=== PATIENT | male | born 1985 | race American Indian/Alaskan Native ===

== ENCOUNTER 2017-11-14 03:50 | Emergency (ER) | payer MEDICAID, OTHER ==
[2017-11-14 03:51] VITALS: BMI 26.4
[2017-11-14 04:07] VITALS: BP 133/87; PULSE 84; RESP 16; TEMP 97.8; O2SAT 97
[2017-11-14] MEDS ORDERED: Oxycodone/Acetaminophen 5/325 mg Tab PO ONE (04:13)
--- NOTE | 2017-11-14 04:16 | ED PDOC ---
Upper Extremity Pain/Injury Time Seen by Provider: 11/14/17 04:02 Chief Complaint (Nursing): Finger,Hand,&Wrist Chief Complaint (Provider): right hand pain History Per: Patient History/Exam Limitations: no limitations Onset/Duration Of Symptoms: Mins (30) Current Symptoms Are (Timing): Still Present Hands/Wrist (Pic): 1 - Tenderness, Swelling, Pain Worse W/Movement Additional Complaint(s): 32 y/o male presents with pain and swelling to right hand x 30 minutes. Patient states he punched a wall prior to arrival. Denies numbness/weakness right upper extremity, limitation of movement. Past Medical History Reviewed: Historical Data, Nursing Documentation, Vital Signs Vital Signs: Last Vital Signs Temp 97.8 F 11/14/17 04:04 Pulse 84 11/14/17 04:04 Resp 16 11/14/17 04:04 BP 133/87 11/14/17 04:04 Pulse Ox 97 11/14/17 04:04 - Medical History PMH: No Chronic Diseases - Family History Family History: States: Unknown Family Hx - Home Medications Home Medications: Ambulatory Orders Medication Instructions Recorded Fluticasone Nasal [Flonase] 1 actuation NS BID #1 bottle 01/28/14 Promethazine DM [Phenergan DM Oral 5 ml PO Q6 PRN #100 ml 01/28/14 Syrup] Amoxicillin/Clavulanate Pota 1 tab PO BID #14 tab 02/06/14 [Augmentin 875 mg-125 mg] Ibuprofen [Motrin] 600 mg PO Q6 PRN #20 tab 02/06/14 Ibuprofen [Motrin] 600 mg PO Q6 PRN #10 tab 05/24/14 Oxycodone HCl/Acetaminophen 1 tab PO Q4 #5 tab 05/24/14 [Percocet 325 mg-5 mg] Naproxen [Naprosyn] 500 mg PO BID PRN #15 tablet 10/11/15 Oxycodone HCl/Acetaminophen 1 tab PO Q6 PRN #6 tab 10/11/15 [Percocet 325 mg-5 mg] Ibuprofen [Motrin Tab] 1 tab PO Q6 PRN #20 tab 11/14/17 traMADol [Ultram] 50 mg PO Q8 PRN #12 tab 11/14/17 - Allergies Allergies/Adverse Reactions: Allergies Allergy/AdvReac Type Severity Reaction Status Date / Time No Known Allergies Allergy Verified 10/28/15 09:01 Review of Systems ROS Statement: Except As Marked, All Systems Reviewed And Found Negative Musculoskeletal: Positive for: Hand Pain (right) Physical Exam - Reviewed Nursing Documentation Reviewed: Yes Vital Signs Reviewed: Yes - Physical Exam Appears: Positive for: Well, Non-toxic, Uncomfortable (agitated) Head Exam: Positive for: ATRAUMATIC, NORMAL INSPECTION, NORMOCEPHALIC Pulses-Radial (L): 2+ Pulses-Radial (R): 2+ Extremity: Positive for: Capillary Refill (<2 sec b/l UE), Deformity, Swelling ( right hand swelling) Neurologic/Psych: Positive for: Alert, Oriented. Negative for: Motor/Sensory Deficits - ECG O2 Sat by Pulse Oximetry: 97 - Other Rad xray right hand X-Ray: Viewed By Me (reviewed with ED attending) X-Ray Interpretation: + avulsion fx base of 5th metacarpal - Progress ED Course And Treament: xray, percocet Patient uncooperative and extremely agitated in ED; out of exam room cursing at staff, demanding faster treatment. Security called, patient now yelling in security's face PD called Patient educated on xray findings, agreeable to splint application Dr. Lee at bedside to apply ulnar gutter splint. Patient refusing to allow proper flexion of 4th and 5th digits for splint. Sling applied Distal NV intact after splint application Patient was advised to follow up with hand specialist. Ice, elevate Rx tramadol, ibuprofen provided Return precautions given Disposition - Clinical Impression Clinical Impression: Right hand fracture - Patient ED Disposition Is Patient to be Admitted: No Counseled Patient/Family Regarding: Studies Performed, Diagnosis, Need For Followup, Rx Given - Disposition Referrals: [facility] [Outside] Tony Tinajero MD [Medical Doctor] - Disposition: Routine/Home Disposition Time: 05:09 Condition: STABLE Prescriptions: Ibuprofen [Motrin Tab] 1 tab PO Q6 PRN #20 tab PRN Reason: Pain, Moderate (4-7) traMADol [Ultram] 50 mg PO Q8 PRN #12 tab PRN Reason: Pain, Moderate (4-7) Instructions: Hand Fracture
[2017-11-14] MEDS ORDERED: Oxycodone/Acetaminophen 5/325 mg Tab ONE (04:33)
--- NOTE | 2017-11-14 14:52 | RAD ---
PROCEDURE: Right Hand Radiographs. HISTORY: punched wall COMPARISON: None. FINDINGS: BONES: Intraarticular hamate fracture. JOINTS: Unremarkable. SOFT TISSUES: Adjacent soft tissue swelling. OTHER FINDINGS: None. IMPRESSION: Intraarticular fracture of the hamate.
== END 2017-11-14 05:15 | disposition home or self-care (01) ==
LOC: H.ER 03:50
DX: S62.316A Displaced fracture of base of fifth metacarpal bone, right hand, initial encounter for closed fracture (principal); W22.01XA Walked into wall, initial encounter

== ENCOUNTER 2017-11-14 12:22 | Emergency (ER) | payer MEDICAID, OTHER ==
[2017-11-14 12:22] VITALS: BMI 26.4
[2017-11-14 12:51] VITALS: BP 118/73; PULSE 75; RESP 16; TEMP 98.1; O2SAT 100
--- NOTE | 2017-11-14 12:55 | ED PDOC ---
Upper Extremity Pain/Injury Time Seen by Provider: 11/14/17 12:53 Chief Complaint (Nursing): Upper Extremity Problem/Injury Chief Complaint (Provider): hand injury History Per: Patient Additional Complaint(s): 32-year-old male presents for evaluation of fracture to right hand. He was seen yesterday and splint was applied but he states that splint does not feel right and he would like it to be replaced. Patient also requesting prescription for Percocet. PMD: none Past Medical History Reviewed: Historical Data, Nursing Documentation, Vital Signs Vital Signs: Last Vital Signs Temp 98.1 F 11/14/17 12:47 Pulse 75 11/14/17 12:47 Resp 16 11/14/17 12:47 BP 118/73 11/14/17 12:47 Pulse Ox 100 11/14/17 12:47 - Medical History PMH: No Chronic Diseases - Surgical History Other surgeries: right leg injury - Family History Family History: States: No Known Family Hx - Living Arrangements Living Arrangements: With Family - Social History Current smoker - smoking cessation education provided: Yes Alcohol: None Drugs: Denies - Home Medications Home Medications: Ambulatory Orders Medication Instructions Recorded Fluticasone Nasal [Flonase] 1 actuation NS BID #1 bottle 01/28/14 Promethazine DM [Phenergan DM Oral 5 ml PO Q6 PRN #100 ml 01/28/14 Syrup] Amoxicillin/Clavulanate Pota 1 tab PO BID #14 tab 02/06/14 [Augmentin 875 mg-125 mg] Ibuprofen [Motrin] 600 mg PO Q6 PRN #20 tab 02/06/14 Ibuprofen [Motrin] 600 mg PO Q6 PRN #10 tab 05/24/14 Oxycodone HCl/Acetaminophen 1 tab PO Q4 #5 tab 05/24/14 [Percocet 325 mg-5 mg] Naproxen [Naprosyn] 500 mg PO BID PRN #15 tablet 10/11/15 Oxycodone HCl/Acetaminophen 1 tab PO Q6 PRN #6 tab 10/11/15 [Percocet 325 mg-5 mg] Ibuprofen [Motrin Tab] 1 tab PO Q6 PRN #20 tab 11/14/17 traMADol [Ultram] 50 mg PO Q8 PRN #12 tab 11/14/17 - Allergies Allergies/Adverse Reactions: Allergies Allergy/AdvReac Type Severity Reaction Status Date / Time No Known Allergies Allergy Verified 11/14/17 12:47 Review of Systems ROS Statement: Except As Marked, All Systems Reviewed And Found Negative Musculoskeletal: Positive for: Other (right hand fracture) Physical Exam - Reviewed Nursing Documentation Reviewed: Yes Vital Signs Reviewed: Yes - Physical Exam Appears: Positive for: Well, Non-toxic, No Acute Distress Skin: Positive for: Normal Color. Negative for: Rash Eye Exam: Positive for: Normal appearance Extremity: Positive for: Other (Ulnar gutter splint in place to right hand, neurovascular intact) Neurologic/Psych: Positive for: Alert, Oriented - ECG O2 Sat by Pulse Oximetry: 100 Pulse Ox Interpretation: Normal Medical Decision Making Medical Decision Makin32 year old male with right hand fracture Patient is requesting Percocet only for pain. Previous records reviewed. Patient given prescription for tramadol yesterday which he states he did not fill. He was offered Motrin but he declined. Patient also requesting splint to right hand is replaced but he left before this could be done. Disposition - Clinical Impression Clinical Impression: Right hand fracture - Patient ED Disposition Is Patient to be Admitted: No - Disposition Disposition: Left W/O Treatment (Patient left before treatment was completed) Disposition Time: 13:17 Condition: UNKNOWN Forms: [employer] (Occitan)
== END 2017-11-14 13:17 | disposition left against medical advice (07) ==
LOC: H.ER 12:22
DX: S62.91XG Unspecified fracture of right hand, subsequent encounter for fracture with delayed healing (principal); X58.XXXD Exposure to other specified factors, subsequent encounter; F17.200 Nicotine dependence, unspecified, uncomplicated

== ENCOUNTER 2017-11-15 09:49 | Emergency (ER) | payer MEDICAID, OTHER ==
[2017-11-15 09:52] VITALS: BMI 36.9
[2017-11-15 09:54] VITALS: PULSE 70; RESP 17; TEMP 97.9; O2SAT 97
--- NOTE | 2017-11-15 10:16 | ED PDOC ---
Upper Extremity Pain/Injury History Per: Patient History/Exam Limitations: no limitations Onset/Duration Of Symptoms: Hrs Current Symptoms Are (Timing): Still Present Quality: Sharp Severity: Moderate Pain Scale Rating Of: 6 Additional Complaint(s): 32 YO Male with no sig PMHx presents to [facility] ED for R hand pain and to replace splint. Pt states that he punched the headboard yesterday, came to the ED after the episode and was found to have a fx. R hand was placed in a splint, pt back here today because he states that his splint is not "put on right" does not feel right and wants to to be replaced. Rates the pain as a 6/10 right now, pt took his cousins percocet last night, and took ibuprofen early this morning. PMHx: denies Surghx: denies FH: denies SH: smoking and hx of marijuana use, social ETOH Meds: Ibuprofen, Percocet Allergies: NKDA <Prachi Bland - Last Filed: 11/15/17 10:35> <Perlita Delcid - Last Filed: 11/15/17 11:13> Time Seen by Provider: 11/15/17 09:57 Chief Complaint (Nursing): Upper Extremity Problem/Injury Supervising Attending Note - Supervising Attending Note The Documented history was done by the: Physician Reconciler The documented physical exam was done by the: Physician Reconciler The documented procedures were done by the: Physician Reconciler - Attestation: I have personally seen and examined this patient.: Yes I have fully participated in the care of the patient.: Yes I have reviewed all pertinent clinical information: Yes <Perlita Delcid - Last Filed: 11/15/17 11:13> Past Medical History Vital Signs: Last Vital Signs Temp 97.9 F 11/15/17 09:52 Pulse 70 11/15/17 09:52 Resp 17 11/15/17 09:52 BP 122/87 11/15/17 09:52 Pulse Ox 97 11/15/17 09:52 - Medical History PMH: No Chronic Diseases - Surgical History Surgical History: No Surg Hx - Family History Family History: States: No Known Family Hx, Unknown Family Hx - Social History Current smoker - smoking cessation education provided: Yes Alcohol: Social Drugs: Cannabis <Prachi Bland - Last Filed: 11/15/17 10:35> Vital Signs: Last Vital Signs Temp 97.9 F 11/15/17 09:52 Pulse 70 11/15/17 09:52 Resp 17 11/15/17 09:52 BP 122/87 11/15/17 09:52 Pulse Ox 97 11/15/17 10:42 <Perlita Delcid - Last Filed: 11/15/17 11:13> - Home Medications Home Medications: Ambulatory Orders Medication Instructions Recorded Fluticasone Nasal [Flonase] 1 actuation NS BID #1 bottle 01/28/14 Promethazine DM [Phenergan DM Oral 5 ml PO Q6 PRN #100 ml 01/28/14 Syrup] Amoxicillin/Clavulanate Pota 1 tab PO BID #14 tab 02/06/14 [Augmentin 875 mg-125 mg] Ibuprofen [Motrin] 600 mg PO Q6 PRN #20 tab 02/06/14 Ibuprofen [Motrin] 600 mg PO Q6 PRN #10 tab 05/24/14 Oxycodone HCl/Acetaminophen 1 tab PO Q4 #5 tab 05/24/14 [Percocet 325 mg-5 mg] Naproxen [Naprosyn] 500 mg PO BID PRN #15 tablet 10/11/15 Oxycodone HCl/Acetaminophen 1 tab PO Q6 PRN #6 tab 10/11/15 [Percocet 325 mg-5 mg] Ibuprofen [Motrin Tab] 1 tab PO Q6 PRN #20 tab 11/14/17 traMADol [Ultram] 50 mg PO Q8 PRN #12 tab 11/14/17 - Allergies Allergies/Adverse Reactions: Allergies Allergy/AdvReac Type Severity Reaction Status Date / Time No Known Allergies Allergy Verified 11/14/17 12:47 Review of Systems Constitutional: Negative for: Fever, Chills Cardiovascular: Negative for: Chest Pain, Palpitations Respiratory: Negative for: Cough, Shortness of Breath Gastrointestinal: Negative for: Nausea, Vomiting, Abdominal Pain Genitourinary Male: Negative for: Dysuria, Frequency Musculoskeletal: Positive for: Hand Pain (R hand pain) Neurological: Negative for: Weakness, Numbness <Prachi Bland - Last Filed: 11/15/17 10:35> Physical Exam - Physical Exam Appears: Positive for: No Acute Distress Skin: Positive for: Normal Color Eye Exam: Positive for: Normal appearance, EOMI Neck: Positive for: Normal Cardiovascular/Chest: Positive for: Regular Rate, Rhythm. Negative for: Murmur Respiratory: Positive for: Normal Breath Sounds. Negative for: Wheezing Gastrointestinal/Abdominal: Positive for: Normal Exam, Bowel Sounds, Soft. Negative for: Tenderness Back: Positive for: Normal Inspection Extremity: Positive for: Tenderness (to palpation of the R hand, mild erythema and edeam around the injury site. ), Capillary Refill (normal cap refill in R hand), Deformity (no notible deformity, only edema ), Other (Pt moving fingers in R hand, and sensory intact ) Neurologic/Psych: Positive for: Alert <Prachi Bland - Last Filed: 11/15/17 10:35> - ECG O2 Sat by Pulse Oximetry: 97 - Progress ED Course And Treament: 32 YO Male with R hand injury seen to replace splint. -IM toradol -new splint <Prachi Bland - Last Filed: 11/15/17 10:35> Disposition <Prachi Bland - Last Filed: 11/15/17 10:35> - Patient ED Disposition Is Patient to be Admitted: No Doctor Will See Patient In The: Office Counseled Patient/Family Regarding: Diagnosis, Need For Followup - Disposition Disposition: Routine/Home Disposition Time: 11:00 - POA Present On Arrival: Falls Or Trauma <Perlita Delcid - Last Filed: 11/15/17 11:13> - Clinical Impression Clinical Impression: Wrist fracture - Disposition Condition: STABLE Instructions: Wrist Fracture (DC) Forms: [employer] (Macedonian)
[2017-11-15 11:27] VITALS: BP 129/86
== END 2017-11-15 11:22 | disposition home or self-care (01) ==
LOC: H.ER 09:49
DX: S69.91XD Unspecified injury of right wrist, hand and finger(s), subsequent encounter (principal); W22.01XD Walked into wall, subsequent encounter; F17.200 Nicotine dependence, unspecified, uncomplicated
CPT/HCPCS: 96372; 99285; J1885

== ENCOUNTER 2017-11-20 01:20 | Emergency (ER) | payer MEDICAID ==
[2017-11-20 01:20] VITALS: BMI 36.9
[2017-11-20 01:24] VITALS: BP 122/72; PULSE 74; RESP 19; TEMP 98.6; O2SAT 97
[2017-11-20] MEDS ORDERED: Oxycodone/Acetaminophen 5/325 mg Tab PO STA (01:57)
[2017-11-20] MEDS ORDERED: Oxycodone/Acetaminophen 5/325 mg Tab ONE (02:26)
--- NOTE | 2017-11-20 03:30 | ED PDOC ---
Upper Extremity Pain/Injury Time Seen by Provider: 11/20/17 01:43 Chief Complaint (Nursing): Upper Extremity Problem/Injury Chief Complaint (Provider): Right hand splint replacement History Per: Patient History/Exam Limitations: no limitations Additional History Per: Patient Additional Complaint(s): 32yo male,states on 11/14 he sustained a fracture on his right hand and states he had a splint placed but earlier today, he accidentally wet the splint. Patient also states he lost his prescriptions for pain meds and never filled it. Otherwise, he denies any new trauma, numbness, tingling, and offers no other medical complaints. Past Medical History Reviewed: Historical Data, Nursing Documentation, Vital Signs Vital Signs: Last Vital Signs Temp 98.6 F 11/20/17 01:24 Pulse 74 11/20/17 01:24 Resp 19 11/20/17 01:24 BP 122/72 11/20/17 01:24 Pulse Ox 97 11/20/17 01:24 - Medical History PMH: No Chronic Diseases, Fractures - Surgical History Surgical History: No Surg Hx - Family History Family History: States: Unknown Family Hx - Immunization History Hx Tetanus Toxoid Vaccination: No Hx Influenza Vaccination: Yes Hx Pneumococcal Vaccination: Yes - Home Medications Home Medications: Ambulatory Orders Medication Instructions Recorded Fluticasone Nasal [Flonase] 1 actuation NS BID #1 bottle 01/28/14 Promethazine DM [Phenergan DM Oral 5 ml PO Q6 PRN #100 ml 01/28/14 Syrup] Amoxicillin/Clavulanate Pota 1 tab PO BID #14 tab 02/06/14 [Augmentin 875 mg-125 mg] Ibuprofen [Motrin] 600 mg PO Q6 PRN #20 tab 02/06/14 Ibuprofen [Motrin] 600 mg PO Q6 PRN #10 tab 05/24/14 Oxycodone HCl/Acetaminophen 1 tab PO Q4 #5 tab 05/24/14 [Percocet 325 mg-5 mg] Naproxen [Naprosyn] 500 mg PO BID PRN #15 tablet 10/11/15 Oxycodone HCl/Acetaminophen 1 tab PO Q6 PRN #6 tab 10/11/15 [Percocet 325 mg-5 mg] Ibuprofen [Motrin Tab] 1 tab PO Q6 PRN #20 tab 11/14/17 traMADol [Ultram] 50 mg PO Q8 PRN #12 tab 11/14/17 Tramadol HCl [Ultram] 50 mg PO BID PRN #4 tablet 11/20/17 - Allergies Allergies/Adverse Reactions: Allergies Allergy/AdvReac Type Severity Reaction Status Date / Time No Known Allergies Allergy Verified 11/20/17 01:40 Review of Systems ROS Statement: Except As Marked, All Systems Reviewed And Found Negative Constitutional: Negative for: Fever, Chills Musculoskeletal: Positive for: Other (requesting splint change) Neurological: Negative for: Weakness, Numbness, Other (tingling) Physical Exam - Reviewed Nursing Documentation Reviewed: Yes Vital Signs Reviewed: Yes - Physical Exam Appears: Positive for: Non-toxic, No Acute Distress Head Exam: Positive for: NORMAL INSPECTION Skin: Positive for: Normal Color Eye Exam: Positive for: Normal appearance Neck: Positive for: Supple Cardiovascular/Chest: Positive for: Regular Rate, Rhythm Respiratory: Positive for: Normal Breath Sounds Extremity: Positive for: Capillary Refill (< 2 seconds), Other (right upper extremity with slightly damp ulnar gutter splint) Neurologic/Psych: Positive for: Alert, Oriented. Negative for: Motor/Sensory Deficits - ECG O2 Sat by Pulse Oximetry: 97 (RA) Pulse Ox Interpretation: Normal - Progress ED Course And Treament: Patient given percocet 1 tab PO for pain relief. Patient refused XR of right hand. Ulnar gutter splint replaced by PA; post application exam shows neurovascular sensations intact. Patient instructed on strict follow up with either orthopedist or hand specialist. Patient is stable upon discharge home. Scribe Attestation: Documented by Sandra Gómez, acting as a scribe for RAVINDER Hull. Provider Scribe Attestation: All medical record entries made by the Scribe were at my direction and personally dictated by me. I have reviewed the chart and agree that the record accurately reflects my personal performance of the history, physical exam, medical decision making, and the department course for this patient. I have also personally directed, reviewed, and agree with the discharge instructions and disposition. Disposition - Clinical Impression Clinical Impression: Aftercare for cast or splint check or change - [facility] [Outside] Arvind Shetty III, MD [Staff Provider] - Tony Tinajero MD [Medical Doctor] - Condition: STABLE Additional Instructions: AGUSTÍN EDGE, thank you for letting us take care of you today. Your provider was Ludwig Chen MD and you were treated for RT ARM WOUND CHECK. The emergency medical care you received today was directed at your acute symptoms. If you were prescribed any medication, please fill it and take as directed. It may take several days for your symptoms to resolve. Return to the Emergency Department if your symptoms worsen, do not improve, or if you have any other problems. Please contact your doctor or call one of the physicians/clinics you have been referred to that are listed on the Patient Visit Information form that is included in your discharge packet. Bring any paperwork you were given at discharge with you along with any medications you are taking to your follow up visit. Our treatment cannot replace ongoing medical care by a primary care provider outside of the emergency department. Thank you for allowing the [facility] team to be part of your care today. If you had an X-Ray or CT scan: A Radiologist will review the ED reading if any change in treatment is needed we will contact you. If you had a blood, urine, or wound culture: It will take several days for the results, if any change in treatment is needed we will contact you. If you had an STI test: It will take 48 hours for the results. Please call after 1 week if you have not heard back. Prescriptions: Tramadol HCl [Ultram] 50 mg PO BID PRN #4 tablet PRN Reason: Pain Instructions: Hand Fracture (DC) Forms: [employer] (Qatari) Print Language: BELARUSIAN
== END 2017-11-20 02:39 | disposition home or self-care (01) ==
LOC: H.ER 01:20
DX: Z47.89 Encounter for other orthopedic aftercare (principal)

== ENCOUNTER 2017-11-27 12:37 | Emergency (ER) | payer MEDICAID ==
[2017-11-27 12:37] VITALS: BMI 36.9
[2017-11-27 12:55] VITALS: BP 120/70; PULSE 77; RESP 18; TEMP 98; O2SAT 97
--- NOTE | 2017-11-27 14:13 | ED PDOC ---
Upper Extremity Pain/Injury Time Seen by Provider: 11/27/17 12:48 Chief Complaint (Nursing): Finger,Hand,&Wrist Chief Complaint (Provider): Right hand pain History Per: Patient History/Exam Limitations: no limitations Onset/Duration Of Symptoms: Days Current Symptoms Are (Timing): Still Present Quality: Sharp, "Pain" Additional Complaint(s): 32 yo male comes to ER for evaluation of Continued right hand pain. Pt had fraxture of hamate bone on 11/14/17. Pt was given tramadol. Pt was seen in ER twice after to get splint changed. Pt states that he needs it changed again. Pt has not yet seen PMD or hand specialist. Pt requesting stronger pain medications. Pt requested precocet on previous visits to Er. Pt states he was seen by [facility] and they were sending him for XR but he did not get it yet. Past Medical History Reviewed: Historical Data, Nursing Documentation, Vital Signs Vital Signs: Last Vital Signs Temp 98.0 F 11/27/17 12:54 Pulse 77 11/27/17 12:54 Resp 18 11/27/17 12:54 BP 120/70 11/27/17 12:54 Pulse Ox 97 11/27/17 12:54 - Medical History PMH: No Chronic Diseases, Fractures - Surgical History Surgical History: No Surg Hx - Family History Family History: States: Unknown Family Hx - Social History Current smoker - smoking cessation education provided: Yes (Light Smoker < 10 Cigarettes Daily) Alcohol: None Drugs: Cannabis - Immunization History Hx Tetanus Toxoid Vaccination: No Hx Influenza Vaccination: Yes Hx Pneumococcal Vaccination: Yes - Home Medications Home Medications: Ambulatory Orders Medication Instructions Recorded Fluticasone Nasal [Flonase] 1 actuation NS BID #1 bottle 01/28/14 Promethazine DM [Phenergan DM Oral 5 ml PO Q6 PRN #100 ml 01/28/14 Syrup] Amoxicillin/Clavulanate Pota 1 tab PO BID #14 tab 02/06/14 [Augmentin 875 mg-125 mg] Ibuprofen [Motrin] 600 mg PO Q6 PRN #20 tab 02/06/14 Ibuprofen [Motrin] 600 mg PO Q6 PRN #10 tab 05/24/14 Oxycodone HCl/Acetaminophen 1 tab PO Q4 #5 tab 05/24/14 [Percocet 325 mg-5 mg] Naproxen [Naprosyn] 500 mg PO BID PRN #15 tablet 10/11/15 Oxycodone HCl/Acetaminophen 1 tab PO Q6 PRN #6 tab 10/11/15 [Percocet 325 mg-5 mg] Ibuprofen [Motrin Tab] 1 tab PO Q6 PRN #20 tab 11/14/17 traMADol [Ultram] 50 mg PO Q8 PRN #12 tab 11/14/17 Tramadol HCl [Ultram] 50 mg PO BID PRN #4 tablet 11/20/17 - Allergies Allergies/Adverse Reactions: Allergies Allergy/AdvReac Type Severity Reaction Status Date / Time No Known Allergies Allergy Verified 11/20/17 01:40 Review of Systems ROS Statement: Except As Marked, All Systems Reviewed And Found Negative Constitutional: Negative for: Fever, Chills Musculoskeletal: Positive for: Hand Pain (right) Psych: Negative for: Suicidal ideation (homicidal ideation) Physical Exam - Reviewed Nursing Documentation Reviewed: Yes Vital Signs Reviewed: Yes - Physical Exam Appears: Positive for: Well, Non-toxic, No Acute Distress Head Exam: Positive for: ATRAUMATIC, NORMAL INSPECTION, NORMOCEPHALIC Skin: Positive for: Normal Color (No erythema, no ecchymosis ), Warm Eye Exam: Positive for: Normal appearance ENT: Positive for: Normal ENT Inspection Neck: Positive for: Normal Cardiovascular/Chest: Negative for: Bradycardia, Tachycardia Respiratory: Negative for: Accessory Muscle Use, Respiratory Distress Pulses-Radial (L): 2+ Pulses-Radial (R): 2+ Back: Positive for: Normal Inspection Extremity: Positive for: Tenderness. Negative for: Normal ROM, Deformity, Swelling Neurologic/Psych: Positive for: Alert, Oriented - ECG O2 Sat by Pulse Oximetry: 97 (RA) Pulse Ox Interpretation: Normal Medical Decision Making Medical Decision Making: Time: 1328 Initial Plan: --Motrin 600mg --Hand Right 3 Views [RAD] Time: 1340 Patient is in pain and feeling agitated regarding pain medication. He wants splint placed and does not want to stay in ED. When XR tech came to bring patient to XR he states he will stay for copy of XR Upon provider evaluation patient is medically stable, and requires no further treatment in the ED at this time. Patient will be discharged. Counseling was provided and all questions were answered regarding diagnosis and need for follow up with hand specialist. There is agreement to discharge plan. Return if symptoms persist or worsen. Scribe Attestation: Documented by Dipika Pena, acting as a scribe for Andreina Craig PA-C. Provider Scribe Attestation: All medical record entries made by the Scribe were at my direction and personally dictated by me. I have reviewed the chart and agree that the record accurately reflects my personal performance of the history, physical exam, medical decision making, and the department course for this patient. I have also personally directed, reviewed, and agree with the discharge instructions and disposition. Disposition - Clinical Impression Clinical Impression: Closed hamate fracture - Patient ED Disposition Is Patient to be Admitted: No - Disposition Referrals: Tony Tinajero MD [Medical Doctor] - FAMILY PROVIDER,NO [Primary Care Provider] - Tony Tinajero MD [Medical Doctor] - Jason Agrawal MD [Staff Provider] - Disposition: Routine/Home Disposition Time: 13:40 Condition: GOOD Additional Instructions: AGUSTÍN EDGE, thank you for letting us take care of you today. Your provider was Maxwell Ochoa MD and you were treated for RIGHT HAND PAIN. The emergency medical care you received today was directed at your acute symptoms. If you were prescribed any medication, please fill it and take as directed. It may take several days for your symptoms to resolve. Return to the Emergency Department if your symptoms worsen, do not improve, or if you have any other problems. Please contact your doctor or call one of the physicians/clinics you have been referred to that are listed on the Patient Visit Information form that is included in your discharge packet. Bring any paperwork you were given at discharge with you along with any medications you are taking to your follow up visit. Our treatment cannot replace ongoing medical care by a primary care provider outside of the emergency department. Thank you for allowing the [facility] team to be part of your care today. If you had an X-Ray or CT scan: A Radiologist will review the ED reading if any change in treatment is needed we will contact you. If you had a blood, urine, or wound culture: It will take several days for the results, if any change in treatment is needed we will contact you. If you had an STI test: It will take 48 hours for the results. Please call after 1 week if you have not heard back. Instructions: Hand Fracture Forms: [employer] (S[place] T[place]an)
--- NOTE | 2017-11-27 16:23 | RAD ---
PROCEDURE: Right Hand Radiographs. HISTORY: hamte fx, continued pain COMPARISON: 11/14/2017 FINDINGS: BONES: Stable fracture associate with the hamate best seen on the oblique view. JOINTS: Normal. No osteoarthritic changes. SOFT TISSUES: Soft tissue swelling identified on the prior study is no longer apparent. OTHER FINDINGS: None. IMPRESSION: Stable fracture right hamate. However, soft tissue swelling apparent previously has resolved.
== END 2017-11-27 14:11 | disposition home or self-care (01) ==
LOC: SUPCPDRO 12:37 → H.ER 12:37
DX: S62.141 Displaced fracture of body of hamate [unciform] bone, right wrist (principal); F17.210 Nicotine dependence, cigarettes, uncomplicated

== ENCOUNTER 2017-12-02 01:19 | Emergency (ER) | payer MEDICAID ==
[2017-12-02 01:28] VITALS: BMI 31.6
[2017-12-02 01:33] VITALS: RESP 16; TEMP 98.6; O2SAT 98
[2017-12-02] MEDS ORDERED: Oxycodone/Acetaminophen 5/325 mg Tab PO STA (01:39)
[2017-12-02] MEDS ORDERED: Oxycodone/Acetaminophen 5/325 mg Tab ONE (01:44)
--- NOTE | 2017-12-02 01:45 | ED PDOC ---
Upper Extremity Pain/Injury Time Seen by Provider: 12/02/17 01:32 Chief Complaint (Nursing): Finger,Hand,&Wrist Chief Complaint (Provider): Finger,Hand,&Wrist History Per: Patient History/Exam Limitations: no limitations Onset/Duration Of Symptoms: Persistent (x3 weeks) Current Symptoms Are (Timing): Still Present Additional Complaint(s): 32 year old male with pmHx of old right wrist fracture, arrives to the ED with persistent pain. Patient sustained fracture on 11/14/17, in which, he was splinted, prescribed Tramadol/Motrin and referred to hand surgeon. He offers no further medical complaints and states that he has not followed up with a specialist. Past Medical History Reviewed: Historical Data, Nursing Documentation, Vital Signs Vital Signs: Last Vital Signs Temp 98.6 F 12/02/17 01:30 Pulse 71 12/02/17 01:30 Resp 16 12/02/17 01:30 BP 128/81 12/02/17 01:30 Pulse Ox 98 12/02/17 01:30 - Medical History PMH: Fractures - Surgical History Surgical History: No Surg Hx - Family History Family History: States: Unknown Family Hx - Immunization History Hx Tetanus Toxoid Vaccination: No Hx Influenza Vaccination: Yes Hx Pneumococcal Vaccination: Yes - Home Medications Home Medications: Ambulatory Orders Medication Instructions Recorded Fluticasone Nasal [Flonase] 1 actuation NS BID #1 bottle 01/28/14 Promethazine DM [Phenergan DM Oral 5 ml PO Q6 PRN #100 ml 01/28/14 Syrup] Amoxicillin/Clavulanate Pota 1 tab PO BID #14 tab 02/06/14 [Augmentin 875 mg-125 mg] Ibuprofen [Motrin] 600 mg PO Q6 PRN #20 tab 02/06/14 Ibuprofen [Motrin] 600 mg PO Q6 PRN #10 tab 05/24/14 Oxycodone HCl/Acetaminophen 1 tab PO Q4 #5 tab 05/24/14 [Percocet 325 mg-5 mg] Naproxen [Naprosyn] 500 mg PO BID PRN #15 tablet 10/11/15 Oxycodone HCl/Acetaminophen 1 tab PO Q6 PRN #6 tab 10/11/15 [Percocet 325 mg-5 mg] Ibuprofen [Motrin Tab] 1 tab PO Q6 PRN #20 tab 11/14/17 traMADol [Ultram] 50 mg PO Q8 PRN #12 tab 11/14/17 Tramadol HCl [Ultram] 50 mg PO BID PRN #4 tablet 11/20/17 - Allergies Allergies/Adverse Reactions: Allergies Allergy/AdvReac Type Severity Reaction Status Date / Time No Known Allergies Allergy Verified 11/20/17 01:40 Review of Systems ROS Statement: Except As Marked, All Systems Reviewed And Found Negative Musculoskeletal: Positive for: Hand Pain (right wrist: old fracture sustained on 11/14/17) Physical Exam - Reviewed Nursing Documentation Reviewed: Yes Vital Signs Reviewed: Yes - Physical Exam Appears: Positive for: Non-toxic, No Acute Distress Extremity: Positive for: Normal ROM (right digits; neurovascularly intact), Other (of note: right splint removed for examination). Negative for: Swelling ( right digits) Neurologic/Psych: Positive for: Alert, Oriented - ECG O2 Sat by Pulse Oximetry: 98 (RA) Pulse Ox Interpretation: Normal Medical Decision Making Medical Decision Making: Initial Impression: Old wrist fracture (sustained on 11/14/17); chronic pain Initial Plan: * Percocet 5/325mg PO Time: 138 Old charts reviewed: 11/14/17 xray shows intraarticular fracture of the right hamate. Since initial visit, patient has been seen in ED x6 times for similar complaints. Rx for Tramadol and Motrin given on 11/14/17. Rx for Tramadol given on 11/20/17. Time: 141 --New ulnar gutter splint to right arm (see procedure note). [facility]visits. Please arrange patient with hand surgeon follow up. Scribe Attestation: Documented by Duyen Mohan, acting as a scribe for Yajaira Wheatley MD. Provider Scribe Attestation: All medical record entries made by the Scribe were at my direction and personally dictated by me. I have reviewed the chart and agree that the record accurately reflects my personal performance of the history, physical exam, medical decision making, and the department course for this patient. I have also personally directed, reviewed, and agree with the discharge instructions and disposition. Procedures - Splinting Location: right wrist Splint: ulnar (gutter) Pre-Proc Neuro Vasc Exam: normal Post-Proc Neuro Vasc Exam: normal Progress: Verbal consent obtained from patient. New splint applied by imaging tech. Patient tolerated application well without complications. Post splint exam NV intact. Disposition - Clinical Impression Clinical Impression: Closed hamate fracture - Patient ED Disposition Is Patient to be Admitted: No Doctor Will See Patient In The: Office Counseled Patient/Family Regarding: Studies Performed, Diagnosis, Need For Followup - Disposition Referrals: [facility] [Outside] Tony Tinajero MD [Medical Doctor] - Jason Agrawal MD [Staff Provider] - Disposition: Routine/Home Disposition Time: 02:00 Condition: GOOD Additional Instructions: AGUSTÍN EDGE, thank you for letting us take care of you today. Your provider was Yajaira Wheatley MD and you were treated for RT HAND PAIN. The emergency medical care you received today was directed at your acute symptoms. If you were prescribed any medication, please fill it and take as directed. It may take several days for your symptoms to resolve. Return to the Emergency Department if your symptoms worsen, do not improve, or if you have any other problems. PLEASE Follow up with hand specialist within 1 week. You will be called in 2-3 days for follow up appointment. Call [facility] if further questions. Please contact your doctor or call one of the physicians/clinics you have been referred to that are listed on the Patient Visit Information form that is included in your discharge packet. Bring any paperwork you were given at discharge with you along with any medications you are taking to your follow up visit. Our treatment cannot replace ongoing medical care by a primary care provider outside of the emergency department. Thank you for allowing the [facility] team to be part of your care today. Instructions: Wrist Fracture (DC) Forms: [employer] (Slovak)
[2017-12-02 02:36] VITALS: BP 120/80; PULSE 70
== END 2017-12-02 02:26 | disposition home or self-care (01) ==
LOC: H.ER 01:19
DX: S62.141 Displaced fracture of body of hamate [unciform] bone, right wrist (principal); G89.29 Other chronic pain

== ENCOUNTER 2017-12-13 12:51 | Emergency (ER) | payer MEDICAID ==
[2017-12-13 12:51] VITALS: BMI 31.6
[2017-12-13 13:13] VITALS: BP 131/91; PULSE 75; RESP 16; TEMP 97; O2SAT 99
[2017-12-13] MEDS ORDERED: Oxycodone/Acetaminophen 5/325 mg Tab PO STA (13:39)
[2017-12-13] MEDS ORDERED: Oxycodone/Acetaminophen 5/325 mg Tab ONE (14:05)
--- NOTE | 2017-12-13 14:12 | ED PDOC ---
Upper Extremity Pain/Injury Time Seen by Provider: 12/13/17 13:30 Chief Complaint (Nursing): Upper Extremity Problem/Injury Chief Complaint (Provider): Medical Clearance History Per: Patient History/Exam Limitations: no limitations Additional Complaint(s): 32 year old male presents to the ED for medical clearance. Patient reports that he sustained a fracture to his fifth right metacarpal several weeks ago and finally is scheduled to see an orthopedic, unsure of who, in two days. However, his PMD at [facility] states that to obtain the referral, he first needs films tomorrow. His initial splint is still in place, and he notes that he is out of percocets but is still in pain. PMD: [facility] Past Medical History Reviewed: Historical Data, Nursing Documentation, Vital Signs Vital Signs: Last Vital Signs Temp 97.0 F L 12/13/17 13:10 Pulse 75 12/13/17 13:10 Resp 16 12/13/17 13:10 BP 131/91 H 12/13/17 13:10 Pulse Ox 99 12/13/17 13:10 - Medical History PMH: Fractures - Surgical History Surgical History: No Surg Hx - Family History Family History: States: Unknown Family Hx - Social History Current smoker - smoking cessation education provided: Yes (light) Alcohol: Social Drugs: Cannabis - Immunization History Hx Tetanus Toxoid Vaccination: No Hx Influenza Vaccination: Yes Hx Pneumococcal Vaccination: Yes - Home Medications Home Medications: Ambulatory Orders Medication Instructions Recorded Fluticasone Nasal [Flonase] 1 actuation NS BID #1 bottle 01/28/14 Promethazine DM [Phenergan DM Oral 5 ml PO Q6 PRN #100 ml 01/28/14 Syrup] Amoxicillin/Clavulanate Pota 1 tab PO BID #14 tab 02/06/14 [Augmentin 875 mg-125 mg] Ibuprofen [Motrin] 600 mg PO Q6 PRN #20 tab 02/06/14 Ibuprofen [Motrin] 600 mg PO Q6 PRN #10 tab 05/24/14 Oxycodone HCl/Acetaminophen 1 tab PO Q4 #5 tab 05/24/14 [Percocet 325 mg-5 mg] Naproxen [Naprosyn] 500 mg PO BID PRN #15 tablet 10/11/15 Oxycodone HCl/Acetaminophen 1 tab PO Q6 PRN #6 tab 10/11/15 [Percocet 325 mg-5 mg] Ibuprofen [Motrin Tab] 1 tab PO Q6 PRN #20 tab 11/14/17 traMADol [Ultram] 50 mg PO Q8 PRN #12 tab 11/14/17 Tramadol HCl [Ultram] 50 mg PO BID PRN #4 tablet 11/20/17 Ibuprofen [Motrin] 600 mg PO Q6 #20 tab 12/13/17 - Allergies Allergies/Adverse Reactions: Allergies Allergy/AdvReac Type Severity Reaction Status Date / Time No Known Allergies Allergy Verified 11/20/17 01:40 Review of Systems ROS Statement: Except As Marked, All Systems Reviewed And Found Negative Musculoskeletal: Positive for: Hand Pain (right 5th metacarpal) Physical Exam - Reviewed Nursing Documentation Reviewed: Yes Vital Signs Reviewed: Yes - Physical Exam Appears: Positive for: No Acute Distress Skin: Positive for: Normal Color, Warm, Dry Cardiovascular/Chest: Positive for: Regular Rate, Rhythm Respiratory: Positive for: Normal Breath Sounds. Negative for: Accessory Muscle Use, Respiratory Distress Pulses-Radial (R): 2+ Extremity: Positive for: Normal ROM (of right wrist and remaining digits of right hand), Tenderness (and mild edema over 5th metacarpal and mcp joint), Other (sensation intact to all digits right hand) - ECG O2 Sat by Pulse Oximetry: 99 (RA) Pulse Ox Interpretation: Normal Medical Decision Making Medical Decision Making: Time: 1339 Initial Impression: medical clearance for PMD Initial Plan: --Percocet 1 tab PO --XR right hand 1418 XR: stable fx of right hamate, as read by SUSHIL Ulnar gutter orthoglass splint re-applied by production underwriter. Distal sensation intact s/ p splinting. Cap refill 2 Pt advised to follow up with ortho and PMD as scheduled Scribe Attestation: Documented by Mickie Nelson, acting as a scribe for Jessica De La Torre PA-C. Provider Scribe Attestation: All medical record entries made by the Scribe were at my direction and personally dictated by me. I have reviewed the chart and agree that the record accurately reflects my personal performance of the history, physical exam, medical decision making, and the department course for this patient. I have also personally directed, reviewed, and agree with the discharge instructions and disposition. Disposition - Clinical Impression Clinical Impression: Injury of hand, Hand pain - Patient ED Disposition Is Patient to be Admitted: No - Disposition Disposition: Routine/Home Disposition Time: 14:59 Condition: STABLE Additional Instructions: Follow up with PMD and Ortho as scheduled! Prescriptions: Ibuprofen [Motrin] 600 mg PO Q6 #20 tab Instructions: Muscle and Bone Pain (DC) Forms: [employer] ([place])
--- NOTE | 2017-12-13 15:12 | RAD ---
PROCEDURE: Right Hand Radiographs. HISTORY: pain s/p fracture COMPARISON: None. FINDINGS: BONES: Previously noted intra-articular fracture to the hamate bone is poorly seen. Tiny fracture fragment is also partially obscured due to patient positioning although may have undergone some resorption. . JOINTS: Normal. No osteoarthritic changes. SOFT TISSUES: There appears to be mild dorsal soft tissue swelling OTHER FINDINGS: None. IMPRESSION: Previously noted intra-articular fracture to the hamate bone is poorly seen. Tiny fracture fragment is also partially obscured due to patient positioning although may have undergone some resorption. . Mild dorsal soft tissue swelling
== END 2017-12-13 14:35 | disposition home or self-care (01) ==
LOC: H.ER 12:51
DX: S62.141 Displaced fracture of body of hamate [unciform] bone, right wrist (principal); M79.641 Pain in right hand